=== PATIENT | female | born 1995 | race Caucasian/White ===

== ENCOUNTER 2022-05-02 11:21 | Day surgery (SDC) | payer BC, OTHER ==
[2022-04-27 15:26] LABS: BASOPHILS % (AUTO) 0.7 % (0-1); EOSINOPHILS % (AUTO) 0.9 % (0-6); LYMPHOCYTES # (AUTO) 2.4 X10'3 (1.1-4.8); LYMPHOCYTES % (AUTO) 49.6 % (21-51); MEAN CORPUSCULAR HEMOGLOBIN 32.8 PG (27.0-31.0); MEAN CORPUSCULAR HGB CONC 33.6 g/dL (33.0-36.5); MEAN CORPUSCULAR VOLUME 97.7 FL (78-98); MEAN PLATELET VOLUME 8.6 FL (7.4-10.4); MONOCYTES # (AUTO) 0.3 X10'3 (0-0.9); MONOCYTES % (AUTO) 6.4 % (2-12); NEUTROPHILS % (AUTO) 42.4 % (42-75); PRE OP HEMATOCRIT 37.8 % (35.0-45.0); PRE OP HEMOGLOBIN 12.7 g/dL (12.0-16.0); PRE OP PLATELET COUNT 244 X10'3 (140-440); RED BLOOD COUNT 3.87 X10'6 (4.20-5.60); RED CELL DISTRIBUTION WIDTH 12.8 % (11.5-14.5)
[2022-04-27 15:35] LABS: ALBUMIN 4.3 G/DL (3.4-5.0); ALBUMIN/GLOBULIN RATIO 1.3 (1.1-1.5); ALKALINE PHOSPHATASE 81 IU/L (46-116); BLOOD UREA NITROGEN 12 MG/DL (7-18); BUN/CREATININE RATIO 14.8 (6.6-38.0); CALCIUM 8.8 MG/DL (8.5-10.1); CHLORIDE 107 MMOL/L (99-107); CREATININE 0.81 MG/DL (0.40-0.90); PRE OP ALT 25 U/L (30-65); PRE OP ANION GAP 8 (8-16); PRE OP AST 16 U/L (10-37); PRE OP BILIRUB, TOTAL 0.5 MG/DL (0.0-1.0); PRE OP GLUCOSE 86 MG/DL (70-104); PRE OP SODIUM 141 MMOL/L (135-145); TOTAL CARBON DIOXIDE 25.6 MMOL/L (24-32); TOTAL PROTEIN 7.5 G/DL (6.4-8.2); eGFR 85 ML/MIN
[2022-04-27 15:41] LABS: HCG SERUM QL NEGATIVE
[2022-05-02] VITALS (8 sets, daily range): BP systolic 96–124; BP diastolic 63–82
[~2022-05-02] VITALS: Ht 157.5 cm; Wt 69.1 kg
[~2022-05-02 11:21] MED LIST: BIRTH CONTROL; ceFOXitin 2GM-NS 100mL ADDvant 100 ML IV ONE; famotidine 20mg tablet PO ONE; ringers solution, lacted 1,000 ML IV SCH
[2022-05-02] MEDS ORDERED: BUPIVAcaine 0.25% w/Epi /PF 30ml vial ONE (11:37)
[2022-05-02] MEDS ORDERED: fentaNYL/PF 50MCG/1 ML 2ML syringe ONE (12:32)
[2022-05-02] MEDS ORDERED: midazolam 1 mg/ML 2ml injection ONE (12:33)
[2022-05-02] MEDS ORDERED: propofol inj 20 ML IV ONE (12:42)
[2022-05-02] MEDS ORDERED: LIDOcaine 2% (20mg/ml) 5ml vial ONE (12:42)
[2022-05-02] MEDS ORDERED: ondansetron/PF 4mg/2ml inj ONE ×2 (12:42→14:04)
[2022-05-02] MEDS ORDERED: rocuronium 10mg/ml inj IV ONE (12:42)
[2022-05-02] MEDS ORDERED: dexamethasone sod phosphate 4mg/ml inj. ONE (12:42)
[2022-05-02] MEDS ORDERED: sevoflurane 250ml liquid IH ONE (13:21)
[2022-05-02] MEDS ORDERED: ringers solution, lacted 1,000 ML IV SCH (13:35)
[2022-05-02] MEDS ORDERED: morphine 4 MG/ML inj SYRINge IV PRN (13:35)
[2022-05-02] MEDS ORDERED: ondansetron/PF 4mg/2ml inj IV PRN (13:35)
[2022-05-02] MEDS ORDERED: proCHLORperazine 10 MG/2 ml inj IV PRN (13:35)
[2022-05-02] MEDS ORDERED: meperidine/PF 25mg/ml syringe IV PRN ×3 (13:35)
[2022-05-02] MEDS ORDERED: morphine 2 MG/ML inj. syringe IV PRN (13:35)
[2022-05-02] MEDS ORDERED: ketorolac trometh. 30mg/ml inj. ONE (13:53)
[2022-05-02] MEDS ORDERED: BUPIVAcaine 0.25% w/Epi /PF 30ml vial IJ ONE (13:55)
[2022-05-02] MEDS ORDERED: glycopyrrolate 0.2mg/ml inj ONE (14:04)
[2022-05-02] MEDS ORDERED: neostigmine methylsulfate 1 MG/ML 10ml vial ONE (14:04)
--- NOTE | 2022-05-02 14:07 | NUR ---
Received from OR via [facility], accompanied by Anesthesiologist DR IBARRA and report given by Anesthesijanusz AND MARÍA TAVAREZ. PT PRESENTS WITH 20G LEFT WRIST, ABD DRESSING SABI GHOSH. Addendum: 05/02/22 at 1415 by Larissa Holder RN, RN Amended: Links added.
--- NOTE | 2022-05-02 15:07 | NUR ---
PT HAS MET D/C CRITERIA. IV D/C'D. VSS. DRESSING C/D/I. I HAVE REVIEWED D/C INSTRUCTIONS WITH PATIENT AND SHE HAS VERBALIZED UNDERSTANDING OF INSTRUCTIONS. PATIENT D/C HOME WITH ALL BELONGINGS Addendum: 05/02/22 at 1521 by Lraissa Holder RN, RN Amended: Links added.
== END 2022-05-02 15:07 | disposition home or self-care (01) ==
LOC: PAS 11:21
PROVIDERS: ATTEND Specialist
DX: Z30.2 Encounter for sterilization (principal); Z88.2 Allergy status to sulfonamides; Z79.899 Other long term (current) drug therapy
CPT/HCPCS: 36415; 58670; 80053; 82948; 84703; 85025; J0694; J1100; J1885; J2250; J2405; J2704; J2710; J3010; J3490; J7030; J7120; S0020; Z7506; Z7512; A4338; A4618; A7000